=== PATIENT | female | born 1955 | race Caucasian/White ===

== ENCOUNTER → 2021-12-29 | Outpatient (CLI) | payer BC ==
[2021-12-29 12:41] LABS: HEMOGLOBIN 14.8 g/dL (11.5-16.0); MEAN PLATELET VOLUME 9.7 fL (9.0-12.2); WHITE BLOOD COUNT 9.4 10^3/uL (4.3-11.0)
[2021-12-29 12:56] LABS: ALBUMIN 4.2 GM/DL (3.2-4.5); BILIRUBIN,TOTAL 0.4 MG/DL (0.1-1.0); CALCIUM 9.4 MG/DL (8.5-10.1); CREATININE SERUM 0.7 MG/DL (0.60-1.30); POTASSIUM 4.1 MMOL/L (3.6-5.0); TOTAL PROTEIN 6.8 GM/DL (6.4-8.2)
== END ==
LOC: LAB 11:56
PROVIDERS: ATTEND Internal Medicine Cardiovascular Disease
DX: E78.2 Mixed hyperlipidemia (principal); I25.10 Atherosclerotic heart disease of native coronary artery without angina pectoris; I10 Essential (primary) hypertension; I65.23 Occlusion and stenosis of bilateral carotid arteries; D69.3 Immune thrombocytopenic purpura; E03.9 Hypothyroidism, unspecified; E66.3 Overweight; F17.210 Nicotine dependence, cigarettes, uncomplicated
CPT/HCPCS: 36415; 80053; 80061; 84443; 85027

== ENCOUNTER → 2022-01-04 | Outpatient (CLI) | payer BC ==
[~2022-01-04] MED LIST: CATHETER FLUSH 10 ML SYR IV PRN; HOLD METFORMIN - RECEIVED CONTRAST 20 ML VIAL IV SCH; IOHEXOL 350 MG/ML 100 ML (OMNIPAQUE 350) VIAL IV ONE; NS 100 ML (IVPB) BAG IV ONE
--- NOTE | 2022-01-04 17:52 | Diagnostic Imaging Report ---
CT ANGIO NECK W INDICATION: Carotid stenosis COMPARISON: None available. TECHNIQUE: CTA imaging of the neck was performed with IV contrast. 3-D MIP reformats are created and submitted. Automatic exposure controls were utilized to keep dose as low as reasonably achievable. FINDINGS: No dissection within the aortic arch. The great vessels of the aortic arch have a conventional three-vessel branching pattern and are patent. The bilateral common carotid arteries are normal. Calcified atherosclerotic plaque at the left ICA origin results in greater than 75% stenosis per NASCET criteria. Calcified atherosclerotic plaque at the right ICA origin results in greater than 90% luminal narrowing per NASCET criteria. The cervical divisions of the internal carotid arteries remain patent without dissection. The bilateral vertebral arteries are codominant throughout the neck. No vertebral artery dissection or occlusion. No intracranial large vessel occlusion or saccular aneurysm. Visualized portions of the dural venous sinuses are patent. No hydrocephalus or space-occupying mass within the brain. 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 IMPRESSION: 1. Greater than 90% stenosis of proximal right ICA due to calcified atherosclerotic plaquing. 2. Greater than 75% stenosis of the left ICA due to calcified atherosclerotic plaquing. Dictated by: Dictated on workstation # [id number]
== END ==
LOC: RAD 09:45
PROVIDERS: ATTEND Internal Medicine Cardiovascular Disease
DX: I65.23 Occlusion and stenosis of bilateral carotid arteries (principal)
CPT/HCPCS: 70498

== ENCOUNTER → 2022-02-07 | Outpatient (CLI) | payer BC | LOC: LABNPT 09:18 | PROVIDERS: ATTEND Thoracic Surgery (Cardiothoracic Vascular Surgery) | DX: Z01.810 Encounter for preprocedural cardiovascular examination (principal); Z01.818 Encounter for other preprocedural examination; Z11.59 Encounter for screening for other viral diseases; I65.23 Occlusion and stenosis of bilateral carotid arteries | CPT/HCPCS: 87636 ==

== ENCOUNTER → 2023-03-08 | Outpatient (RCR) | payer BC, MEDICARE | END | disposition home or self-care (01) | LOC: EDBD 12:50 → ONC 12:50 | PROVIDERS: ATTEND Internal Medicine Hematology & Oncology | DX: Z53.9 Procedure and treatment not carried out, unspecified reason (principal) ==